=== PATIENT | female | born 1955 | race Hispanic/Latino ===

== ENCOUNTER 2021-04-24 07:43 | Emergency (ER) | payer OTHER ==
--- OUTSIDE RECORDS SUMMARY | 2021-04-24 07:46 | XMS REPORT | Continuity of Care Document ---
:1955 Author Organization [facility] t Address [address] [place] [address] [address]. [address] [place] [address] Care Team Providers Name Role Phone Marino Goodwin MD Primary Care Physician JAILYN Attending Clinician Unavailable Yahir Vargas MD Attending Clinician Chadd PATE Attending Clinician Unavailable JAILYN Attending Clinician Unavailable DENNY Attending Clinician Unavailable Payers Payer Name Policy Type Policy Number Effective Date Expiration Date S zamzam [facility] MEDICARE [id number] 2020 ADVANTAGE 00:00:00 Problems Condition Condition Condition Status Onset Resolution Last Treating Co mments Source Name Details Category Date Date Treatment Clinician Date 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 hyperthyro 00:00: Ho spita idism idism 00 l Multinodul Multinodul Disease Active 2018-0 M ethodi ar goiter ar goiter 03-10 00:00: Hospita 00 l Pre-operat Pre-operat Problem Active U nivers evie evie ity [place] cardiovasc [place]ovasc [place] ular [place] Physici examinatio examinatio an s n, n, valvular valvular heart heart disease disease Essential Essential Problem Active Uni vers hypertensi hypertensi it y of on on [place] Physici ans Mixed Mixed Problem Active Univers hyperlipid hyperlipid it y of emia emia [place] Phys[facility] ans Controlled Controlled Problem Active U nivers 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 diabetes [place] mellitus mellitus Physic i without without ans complicati complicati on, on, without without long-term long-term current current use of use of insulin insulin SUSAN on SUSAN on Problem Active Univers CPAP CPAP ity of [place] Physici ans Morbidly Morbidly Problem Active Unive rs obese obese ity of [place] [facility] ans Malnutriti Malnutriti Problem Active U nivers on on ity of [place] Physici ans S/P S/P Problem Active Univers gastric gastric ity of bypass bypass [place] [facility] Fat Fat Problem Active Univers malabsorpt malabsorpt it y of ion ion [place] [facility] Vitamin D Vitamin D Problem Active Uni vers deficiency deficiency it y of [place] Physici ans Recurrent Recurrent Problem Active Uni vers ventral ventral ity of hernia hernia [place] [facility] Vitamin B1 Vitamin B1 Problem Active U nivers deficiency deficiency it y of [place] [facility] Vitamin B Vitamin B Problem Active Uni vers 12 12 [place]y of deficiency deficiency [place] [facility] Allergies, Adverse Reactions, Alerts Allergy Allergy Status Severity Reaction(s) Onset Inactive Treating Comm ents Source Name Type Date Date Clinician Hydrocod Propensi Active Method i one ty to 03-10 st adverse 00:00: Hospita reaction 00 l s to drug hydrocod Allergy Active Univers one to drug ity of (finding [place] ) Physici ans Family History Family Member Diagnosis Comments Start Date Stop Date Source Natural father Dementia [facility] Natural father Hypertension [facility] t [facility] Natural mother Cancer [facility] Natural mother Thyroid disease Metho dist [facility] Natural sister Cancer [facility] Social History Social Habit Start Date Stop Date Quantity Comments Source Exposure to Not sure [facility] [address] (event) Tobacco use and 2020-12-31 2020-12-31 Never used [facility] exposure 00:00:00 00:00:00 Hospital Alcohol intake 2020-12-31 2020-12-31 Ex-drinker [facility] 00:00:00 00:00:00 (finding) Hospital Sex Ass[birth year] At [birth year] [facility] 00:00:00 00:00:00 Hospital Smoking Status Start Date Stop Date Source Never smoker [facility] Medications Ordered Filled Start Stop Current Ordering Indication Dosage Frequency Signature Comments Components Source Medication Medication Date Date Medication? Clinician (SIG) Name Name pravastatin 10mg QD Take 10 mg Maricarmen (PRAVACHOL) 12-[address] 10 MG 16:27: 00:00 nightly. Hospita tablet 44 :00 l duloxetine Yes Take by Meth kalpana HCl 12-[address] (DULOXETINE 16:27: mg Hospit a ORAL) 43 l Ca/D3/mag Yes Take by Metho di ox/zinc/animal cop 12-[address] /deniz/bor 16:27: IU - D3 Hospi ta (CALCIUM 43 l 600-D3 PLUS ORAL) hydroCHLORO Yes 25mg QD Take 25 mg Methodi thiazide 12-[address] (HYDRODIURI 16:27: daily. Hosp nelson L) 25 MG 43 l tablet multivitami Yes 1{tbl} QD Take 1 Me thodi n tablet 12-[address] 16:27: mouth Hospita 43 daily. l CALCIUM Yes Take by Methodi CITRATE 12-[address] ORAL 16:27: mg bid Hospita 43 l metformin 2020- No Take by Meth kalpana HCl 12-[address] (METFORMIN 16:27: 00:00 mg BID Hosp nelson ORAL) 43 :00 l losartan-hy 2020- No 1{tbl} QD Take 1 M ethodi drochloroth 12-31 tablet by iazide 16:27: 00:00 mouth Hospita (HYZAAR) 43 :00 daily. l 100-12.5 mg per tablet dapaglifloz 2020- No 10mg QD Take 10 mg Methodi in 12-[address] (FARXIGA) 16:27: 00:00 daily. Hospi ta 10 mg 43 :00 l tablet multivitami 2020- No Take by Ms thodi n/iron/foli 12-[address] c acid 16:27: 00:00 Hospita (CENTRUM 43 :00 l COMPLETE ORAL) beta-carote 2020- No Take by Ms princess ne,A,-vits 12-[address] C,E/mins 16:27: 00:00 Hospita (VISION 43 :00 l FORMULA ORAL) aspirin 2020- No 81mg QD Take 81 mg Met hodi (ECOTRIN) 12-[address] 81 MG 16:27: 00:00 daily. Hospita enteric 43 :00 l coated tablet Losartan Losartan Yes RESERVATIONS SPECIALIST 1 QD TAKE 1 Unive rs Potassium-H Potassium-H TABLET ity of CTZ CTZ DAILY. [place] 100-12.5 MG 100-12.5 MG P hysici Oral Tablet Oral Tablet a ns DULoxetine DULoxetine Yes RESERVATIONS SPECIALIST 1 QD TAKE 1 U nivers HCl - 40 MG HCl - 40 MG CAPSULE ity of Oral Oral DAILY [place] Capsule Capsule Physici Delayed Delayed ans Release Release Particles Particles Bariatric Bariatric Yes RESERVATIONS SPECIALIST Unive rs Multivitami Multivitami i ty of ns/Iron ns/Iron [place] Oral Oral Physici Capsule Capsule ans Vitamin Vitamin Yes RESERVATIONS SPECIALIST Univers B-12 500 B-12 500 ity of MCG MCG [place] Sublingual Sublingual Phy sici Tablet Tablet ans Sublingual Sublingual Calcium 500 Calcium 500 Yes RESERVATIONS SPECIALIST U nivers MG TABS MG TABS ity of [place] Physici ans Hair Skin Hair Skin Yes RESERVATIONS SPECIALIST 1 QD TAKE 1 Uni vers and Nails and Nails TABLET ity of Formula Formula DAILY. [place] Oral Tablet Oral Tablet P hysici ans Vital Signs Vital Name Observation Time Observation Value Comments Source Systolic blood 2020-12-31 145 mm[Hg] [facility] pressure 16:22:00 [facility] Diastolic blood 2020-12-31 63 mm[Hg] [facility] pressure 16:22:00 [facility] Heart rate 2020-12-31 60 /min [facility] 16:22:00 [facility] Body height 2020-12-31 157.5 cm [facility] 16:22:00 [facility] Body weight 2020-12-31 77.656 kg [facility] 16:22:00 [facility] BMI 2020-12-31 31.31 kg/m2 [facility] 16:22:00 [facility] Body temperature 2020-12-06 95.3 [degF] Method: [facility] 11:32:00 Temporal [place] Physician s Heart Rate 2020-12-06 62 /min Location: [facility] 11:32:00 Brachial [place] Physician s Artery; Systolic blood 2020-12-06 141 mm[Hg] Location: [facility] 11:32:00 Position: [place] Physician s Sitting Diastolic blood 2020-12-06 75 mm[Hg] Location: [facility] 11:32:00 Position: [place] Physician s Sitting Body height 2020-12-06 60 [in_us] University of 11:32:00 [place] Physician s Weight 2020-12-06 175.5 [lb_av] University of 11:32:00 [place] [facility]ician s Body mass index 2020-12-06 34.28 kg/m2 University o f (BMI) [Ratio] 11:32:00 [place] Physicia ns Systolic blood 2020-08-28 144 mm[Hg] Location: ART[facility]; [facility] 10:58:00 Position: [place] Physician s Sitting Diastolic blood 2020-08-28 80 mm[Hg] [facility] 10:58:[facility] Position: [place] Physician s Sitting Body height 2020-08-28 60 [in_us] University of 10:58:00 [place] Physician s Weight 2020-08-28 187.5 [lb_av] University of 10:58:00 [place] [facility] s Body mass index 2020-08-28 36.62 kg/m2 University o f (BMI) [Ratio] 10:58:00 [place] Physicia ns Body temperature 2020-08-28 95.4 [degF] Method: [place] of 10:58:00 Temporal [place] Physician s Heart Rate 2020-08-28 80 /min Location: L [place] of 10:58:00 Brachial [place] Physician s Artery; Quality: Normal Systolic blood 2020-05-29 111 mm[Hg] [facility] 13:32:[facility] Position: [place] Physician s Sitting Diastolic blood 2020-05-29 70 mm[Hg] [facility] 13:32:[facility] Position: [place] Physician s Sitting Body height 2020-05-29 65 [in_us] University of 13:32:00 [place] Physician s Weight 2020-05-29 208 [lb_av] University of 13:32:00 [place] Physician s Body mass index 2020-05-29 34.61 kg/m2 University o f (BMI) [Ratio] 13:32:00 [place] Physicia ns Body temperature 2020-05-29 96.2 [degF] Method: University of 13:32:00 Brachial [place] Physician s Heart Rate 2020-05-29 76 /min Location: L [place] of 13:32:00 Brachial [place] Physician s Artery; Quality: Normal Systolic blood 2020-01-24 162 mm[Hg] [facility] 12:35:00 Position: [place] Physician s Sitting Diastolic blood 2020-01-24 87 mm[Hg] [facility] 12:35:00 Position: [place] Physician s Sitting Body height 2020-01-24 60 [in_us] University 12:35:00 [place] Physician s Weight 2020-01-24 265.375 [lb_av] University o f 12:35:00 [place] Physician s Body mass index 2020-01-24 51.83 kg/m2 University o (BMI) [Ratio] 12:35:00 [place] [facility] Body temperature 2020-01-24 98.3 [degF] Method: Oral [facility] 12:35:00 [place] Physician s Heart Rate 2020-01-24 84 /min Location: Jossy [facility] 12:35:00 Brachial [place] Physician s Artery; Quality: Normal BP Systolic 2019-05-17 186 mm[Hg] [facility] 11:00:00 Position: [place] Physician s Sitting BP Diastolic 2019-05-17 81 mm[Hg] [facility] 11:00:00 Position: [place] Physician s Sitting Height 2019-05-17 60 [in_us] [facility] 11:00:00 [place] Physician s Weight 2019-05-17 287 [lb_av] [facility] 11:00:00 [place] [facility] s Body Mass Index 2019-05-17 56.05 kg/m2 University o f Calculated 11:00:00 [place] Physician s Temperature 2019-05-17 98 [degF] Method: Oral [facility] 11:00:00 [place] [facility] s Heart Rate 2019-05-17 85 /min [facility] 11:00:00 [place] [facility] Procedures Procedure Date / Time Performing Clinician Source Performed NM THYROID UPTAKE AND 2021-04-08 16:35:00 Ishmael Vargas [facility] SCAN SINGLE OR MULTIPLE [Q] QUESTASSURED 25-[place] 2020-12-06 00:00:00 [facility] VIT D, (D2,D3), Physicians LC/MS/MS [QL] CBC (INCLUDES 2020-12-06 00:00:00 [facility] [place] [facility] DIFF/PLT) Physicians [QL] CMP W/EGFR 2020-12-06 00:00:00 [facility] [place] Physicians [QL] FOLATE, SERUM 2020-12-06 00:00:00 [facility] Physicians [QL] HEMOGLOBIN A1c 2020-12-06 00:00:00 [facility] Physicians [QL] IRON AND TOTAL 2020-12-06 00:00:00 [facility] IRON BINDING CAPACITY Physicians [QL] LIPID PANEL 2020-12-06 00:00:00 [facility] Physicians [QL] PTH, INTACT 2020-12-06 00:00:00 [facility] (WITHOUT CALCIUM) Physicians [QL] TSH, 3RD 2020-12-06 00:00:00 [facility] GENERATION W/REFLEX TO Physician s FT4 [QL] VITAMIN A 2020-12-06 00:00:00 [facility] (RETINOL) Physicians [QL] VITAMIN B1, WHOLE 2020-12-06 00:00:00 Unive [facility] BLOOD Physicians [QL] VITAMIN B12 2020-12-06 00:00:00 [facility] Physicians [QL] VITAMIN E 2020-12-06 00:00:00 [facility] (TOCOPHEROL) Physicians [Q] QUESTASSURED 25-[place] 2020-08-28 00:00:00 Unive [facility] VIT D, (D2,D3), Physicians LC/MS/MS [QL] CBC (INCLUDES 2020-08-28 00:00:00 [facility] DIFF/PLT) Physicians [QL] FOLATE, SERUM 2020-08-28 00:00:00 [facility] Physicians [QL] IRON AND TOTAL 2020-08-28 00:00:00 [facility] IRON BINDING CAPACITY Physicians [QL] LIPID PANEL 2020-08-28 00:00:00 [facility] Physicians [QL] PTH, INTACT 2020-08-28 00:00:00 [facility] (WITHOUT CALCIUM) Physicians [QL] VITAMIN A 2020-08-28 00:00:00 [facility] (RETINOL) Physicians [QL] VITAMIN B1, WHOLE 2020-08-28 00:00:00 Unive [facility] BLOOD Physicians [QL] VITAMIN B12 2020-08-28 00:00:00 [facility] Physicians [QL] VITAMIN E 2020-08-28 00:00:00 [facility] (TOCOPHEROL) Physicians CT Abdomen/Pelvis w 2020-08-28 00:00:00 [facility] contrast [id number] Physicians [Q] QUESTASSURED 25-[place] 2020-05-29 00:00:00 [facility] VIT D, (D2,D3), Physicians LC/MS/MS [QL] FOLATE, SERUM 2020-05-29 00:00:00 [facility] Physicians [QL] IRON AND TOTAL 2020-05-29 00:00:00 [facility] IRON BINDING CAPACITY Physicians [QL] PTH, INTACT 2020-05-29 00:00:00 [facility] (WITHOUT CALCIUM) Physicians [QL] VITAMIN A 2020-05-29 00:00:00 [facility] (RETINOL) Physicians [QL] VITAMIN B1, WHOLE 2020-05-29 00:00:00 [facility] BLOOD Physicians [QL] VITAMIN B12 2020-05-29 00:00:00 [facility] Physicians [QL] VITAMIN E 2020-05-29 00:00:00 [facility] (TOCOPHEROL) Physicians Plan of Care Planned Activity Planned Date Details Comments Source Future Scheduled Test 65+ PNEUMOCOCCAL Me [facility] VACCINE (1 of 2 - PPSV23) [code = 65+ PNEUMOCOCCAL VACCINE (1 of 2 - PPSV23)] Future Scheduled Test DIABETES: RETINAL EYE [facility] EXAM [code = DIABETES: RETINAL EYE EXAM] Future Scheduled Test DIABETIC FOOT EXAM [facility] [code = DIABETIC FOOT EXAM] Future Scheduled Test URINE MICROALBUMIN [facility] [code = URINE MICROALBUMIN] Future Scheduled Test COVID-19 VACCINE (1) [facility] [code = COVID-19 VACCINE (1)] Future Scheduled Test Hepatitis C screening [facility] (procedure) [code = 701263424] Future Scheduled Test BREAST CANCER SCREENING [facility] [code = BREAST CANCER SCREENING] Future Scheduled Test COLONOSCOPY SCREENING [facility] [code = COLONOSCOPY SCREENING] Future Scheduled Test SHINGLES VACCINES (#1) [facility] [code = SHINGLES VACCINES (#1)] Future Scheduled Test INFLUENZA VACCINE [code [facility] = INFLUENZA VACCINE] Future Scheduled Test Screening for malignant [facility] neoplasm of cervix (procedure) [code = 954684989] Encounters Start End Encounter Admission Attending Care Care Encounter Source Date/Time Date/Time Type Type Clinicians Facility Department ID 2020-12-28 Outpatient JAILYN [facility] [id number] [place] 03:12:38 [facility] 2020-02-06 Inpatient [facility] MADHURI [address] [facility] 05:19:00 2021-04-08 2021-04-08 [facility], 1.2.840.1 [id number] Methodi 10:30:00 23:59:00 Encounter Ishmael VandaAlannah 54830.1.[address] 3.430.2.7 Hospit a .3.904520 l .8 2021-04-08 2021-04-08 Outpatient [facility] [id number] [place] 00:00:00 00:00:[address] 2021-04-07 2021-04-07 [facility], 1.2.840.1 [id number] Methodi 14:05:21 23:59:00 Encounter Ishmael VandaAlannah 56656.1.[address] 3.430.2.7 Hospit a .3.814574 l .8 2021-04-07 2021-04-07 [facility], 1.2.840.1 [id number] 127 Methodi 10:16:24 14:04:00 Encounter Ishmael VandaAlannah 26629.1.[address] 3.430.2.7 Hospit a .3.192416 l .8 2021-04-07 2021-04-07 Outpatient [facility] [id number] [place] 00:00:00 00:00:00 ISHMAEL [address] 2021-04-07 2021-04-07 Outpatient [facility] [id number] [place] 00:00:00 00:00:[address] 2021-04-07 2021-04-07 Travel 1.2.840.1 1.2.269.265 [id number] Methodi 00:00:00 00:00:[address] 3.430.2.7 0.2.7.3.698 Ho spita .3.234525 084.8 l .8 2021-03-27 2021-03-27 Travel 1.2.840.1 1.2.578.399 [id number] Methodi 00:00:00 00:00:[address] 3.430.2.7 0.2.7.3.698 Ho spita .3.079703 084.8 l .8 2021-03-07 2021-03-07 Office ROSEY Glaser [facility] 1.2.840.114 [id number] 11:54:00 12:19:17 Visit Louise IVERSON 350.1.13.58 MEDICAL 9.2.7.2.686 [address] 4 [id number] 2021-03-05 2021-03-05 Travel 1.2.840.1 1.2.878.347 [id number] Methodi 00:00:00 00:00:[address] 3.430.2.7 0.2.7.3.698 Ho spita .3.433023 084.8 l .8 2021-03-05 2021-03-05 Noreen Florentino 1.2.840.1 [id number] Methodi 00:00:00 00:00:[address] 3.430.2.7 Hospit a .3.957292 l .8 2021-03-05 2021-03-05 Orders Chadd 1.2.840.1 [id number] Methodi 00:00:00 00:00:00 Only Charo [address]76.1.[address] 3.430.2.7 Hospit a .3.031378 l .8 2020-12-31 2020-12-31 Office Alicia, 1.2.840.1 [id number] Methodi 11:16:39 11:36:39 Visit Ishmael Sinclair 69646.1.[address] 3.430.2.7 Hospit a .3.653164 l .8 2020-12-31 2020-12-31 Outpatient [facility] [id number] 00:00:00 00:00:00 ISHMAEL [address] 2020-12-31 2020-12-31 Travel 1.2.840.1 1.2.315.248 [id number] Methodi 00:00:00 00:00:[address] 3.430.2.7 0.2.7.3.698 Ho spita .3.517942 084.8 l .8 2020-12-17 2020-12-17 Telephone Chadd, 1.2.840.1 [id number] Methodi 00:00:00 00:00:[address] 3.430.2.7 Hospit a .3.541787 l .8 2020-12-06 2020-12-06 [id number] Univers 11:45:00 11:45:00 t; LOUISE GLASER M.D. lty - ity of [place] GIL [facility] Physici ans 2020-08-28 2020-08-28 [facility] [id number] Univers 11:00:00 11:00:00 t; LOUISE GLASER M.D. Surgery - ity of [place] Physici ans 2020-05-29 2020-05-29 [facility] [id number] Univers 13:45:00 13:45:00 t; LOUISE GLASER M.D. ity of [place] Physici ans 2020-03-27 2020-03-27 [facility] [id number] Univers 13:30:00 13:30:00 t; LOUISE GLASER M.D. ity of [place] Physici ans 2020-02-16 2020-02-16 [facility] ROSEY GLASER [facility] [id number] Univers 13:00:00 13:00:00 t; LOUISE GLASER M.D. ity of [place] Physici ans 2020-02-16 2020-02-16 [facility] [id number] Univers 10:15:00 10:15:00 t; LOUISE GLASER M.D. ity of [place] Physici ans 2020-01-24 2020-01-24 Appointmen ROSEY GLASER General [id number] Univers 13:00:00 13:00:00 t; LOUISE GLASER M.D. Surgery - ity of [place] Phys[place] 2019-08-21 2019-08-21 Appointmen JEREMYBRITNI-FAUSTOEDMAR [facility] UTP [id number] Univers 10:00:00 10:00:00 t; RAFFAELE Suarez, ity of [address] [facility] Physi ci RD ans 2019-08-10 2019-08-10 Appointmen JEREMYBRITNI-FAUSTOEDMAR [facility] UTP [id number] Univers 12:30:00 12:30:00 t; RAFFAELE Suarez ity of [address] [facility] Physi ci RD ans 2019-08-04 2019-08-04 Appointmen ROSEY GLASER UTP [id number] Univers 11:15:00 11:15:00 t; LOUISE GLASER M.D. ity of [place] Physici ans 2019-07-17 2019-07-17 Appointmen MERCEDEZ-DAGMARIsac [facility] UTP [id number] Univers 12:30:00 12:30:00 t; RAFFAELE Suarez ity of [address] [facility] Physi ci RD ans 2019-07-10 2019-07-10 Appointmen ROSEY GLASER General [id number] Univers 11:30:00 11:30:00 t; LOUISE GLASER M.D. Surgery - ity of [place] [facility] Physici Center ans 2019-06-19 2019-06-19 Appointmen JEREMYBRITNI-FAUSTOEDMAR [facility]TP [id number] Univers 09:45:00 09:45:00 t; RAFFAELE Suarez ity of [address] [facility] Physi ci RD ans 2019-05-17 2019-05-17 Appointmen ROSEY GLASER Multispecia [id number] Univers 11:00:00 11:00:00 t; LOUISE GLASER M.D. lty - ity of [place] Physici ans Results Test Description Test Time Test Comments Results Result 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 Comparison: None TECHNIQUE: The patient was administered 200 uCi of I-123 sodium iodide orally. The patient returned 24 hours later for planar thyroid scintigraphy and radioiodine uptake value calculation. A 4 hr uptake was also calculated. FINDINGS: Markedly increased uptake in both thyroid lobes, but this is quite heterogeneous and includes a roughly 3.3 cm photopenic defect in the lateral left mid pole. Both lobes are markedly enlarged, with the right lobe measuring about 8.5 cm in the left lobe 9.2 cm. 4 hour uptake = 21% (normal = 5-10%)24-hour uptake = 65% (normal = 10-25%) IMPRESSION: Findings are very suggestive of Graves' disease. However, markedly heterogeneous radiotracer uptake throughout the thyroid gland suggests multiple hypofunctioning (cold) nodules, with a large cold nodule in the left mid pole. Please correlate with ultrasound to exclude malignancy. [facility]-[id number] Dictated and approved by vice president of business development/fellow: Severo Gonzales M.D. 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 The patient returned 24 hours later for planar thyroid scintigraphy and radioiodine uptake value calculation. A 4 hr uptake was also calculated. FINDINGS: Markedly increased uptake in both thyroid lobes, but this is quite heterogeneous and includes a roughly 3.3 cm photopenic defect in the lateral left mid pole. Both lobes are markedly enlarged, with the right lobe measuring about 8.5 cm in the left lobe 9.2 cm.4 hour uptake = 21% (normal = 5-10%)24-hour uptake = 65% (normal = 10-25%) IMPRESSION:Findings are very suggestive of Graves' disease. However, markedly heterogeneous radiotracer uptake throughout the thyroid gland suggests multiple hypofunctioning (cold) nodules, with a large cold nodule in the left mid pole. Please correlate with ultrasound to exclude malignancy.[facility]-[id number] and approved by vice president of business development/fellow: Tyron Kim, Yosi Green, personally reviewed the images and resident's/fellow's findings and agree with the final report. [QL] LIPID PANEL 2020-12-06 12:18:00 Test Item Value Reference Range Interpretation Comme nts CHOLESTEROL, TOTAL; Normal 166 mg/dl <200 N (test code = 2093-3) HDL CHOLESTEROL; Below Low 49 mg/dl See_Comment [Automated message] The Threshold (test code = syste m which generated 2085-04) this result tra nsmitted reference range : > OR = 50. The referen ce range was not used to interpret this result as normal/abnormal . TRIGLYCERIDES; Normal (test 78 mg/dl <150 N code = 2571-8) LDL-CHOLESTEROL; Above High 100 {MG/DL MAGDIEL} Reference range: <100 Threshold (test code = Dwight able range <100 mg/dL 49466-4) for primary pre vention; <70 mg/dL for p atients with CHD or imtiaz betic patients with > or = 2 CHD risk factors. L DL-C is now calculated julisa mulligan the Ankush-Crane calculation, wh ich is a validated novel method providing cholo r accuracy than the Friede mamie equation in the estimation of LDL-C. Raina n SS et al. EFFIE. 2013;310( 19): 0753-4582 (http://educati onHudl/fa q/HQE557) CHOL/HDLC RATIO (test code = 3.4 {CALC} <5.0 N CHOL/HDLC RATIO) NON HDL CHOLESTEROL (test 117 {MG/DL MAGDIEL} <130 N For patients with diabetes code = NON HDL CHOLESTEROL) plus 1 major ASCVD risk factor, treatin g to a non-HDL-C goal of <100 mg/dL (LDL-C of <70 mg/dL) is considered a therapeutic opt ion. [facility][QL] IRON AND TOTAL IRON BINDING CAPACITY 2020-12-06 12:18:00 Test Item Value Reference Range Interpretation Comments IRON, TOTAL (test code = 118 {mcg/dl} 45-160 N IRON, TOTAL) IRON BINDING CAPACITY (test 323 {mcg/dL ca} 250-450 N code = IRON BINDING CAPACITY) % SATURATION (test code = % 37 {% CALC} 16-45 N SATURATION) [facility][QL] CMP [id number] 12:18:00 Test Item Value Reference Range Interpretation Comments GLUCOSE; Normal 88 mg/dl 65-139 N Non-fasting reference (test code = interval 1547-9) UREA NITROGEN (BUN) 28 mg/dl 7-25 (test code = UREA NITROGEN (BUN)) CREATININE (test 0.65 mg/dl 0.50-0.99 N For patient s >49 years code = CREATININE) of age, t he reference limitfor Creati nine is approximately 1 3% higher for peopleidentifie d as -Lidya n. eGFR NON-AFR. 93 See_Comment N [Automated me ssage] JORDANIAN (test code {ML/MIN/1.7} The syst em which = eGFR NON-AFR. generated th is result JORDANIAN) transmitted ref erence range: > OR = 6 0. The reference range was not used to interpr et this result as normal/abnormal . eGFR 108 See_Comment N [Automated mes saul] JORDANIAN (test code {ML/MIN/1.7} The syst em which = eGFR generated thi s result JORDANIAN) transmitted ref erence range: > OR = 6 0. The reference range was not used to interpr et this result as normal/abnormal . BUN/CREATININE 43 {CALC} 6-22 RATIO (test code = BUN/CREATININE RATIO) SODIUM (test code = 143 mmol/L 135-146 N SODIUM) POTASSIUM (test 4.9 mmol/L 3.5-5.3 N code = POTASSIUM) CHLORIDE (test code 106 mmol/L 98-110 N = CHLORIDE) CARBON DIOXIDE 31 mmol/L 20-32 N (test code = CARBON DIOXIDE) CALCIUM (test code 9.9 mg/dl 8.6-10.4 N = CALCIUM) PROTEIN, TOTAL 6.5 g/dl 6.1-8.1 N (test code = PROTEIN, TOTAL) ALBUMIN (test code 4.0 g/dl 3.6-5.1 N = ALBUMIN) GLOBULIN (test code 2.5 {G/DL 1.9-3.7 N = GLOBULIN) CALC} ALBUMIN/GLOBULIN 1.6 {CALC} 1.0-2.5 N RATIO (test code = ALBUMIN/GLOBULIN RATIO) BILIRUBIN, TOTAL; 0.7 mg/dl 0.2-1.2 N Normal (test code = 85172-2) ALKALINE 97 u/l 37-153 N PHOSPHATASE (test code = ALKALINE PHOSPHATASE) AST; Normal (test 24 u/l 10-35 N code = 1916-6) ALT; Normal (test 23 u/l 6-29 N code = 1742-6) [facility][QL] CBC (INCLUDES DIFF/PLT)2020-12-06 12:18:00 Test Item Value Reference Range Interpretation Comments WHITE BLOOD CELL COUNT 5.4 {Thousand/u} 3.8-10.8 N (test code = WHITE BLOOD CELL COUNT) RED BLOOD CELL COUNT (test 4.31 {Million/uL} 3.80-5.10 N code = RED BLOOD CELL COUNT) HEMOGLOBIN; Normal (test 13.5 g/dl 11.7-15.5 N code = 65185-7) HEMATOCRIT; Normal (test 39.0 % 35.0-45.0 N code = 4544-3) MCV; Normal (test code = 90.5 fL 80.0-100.0 N 787-2) MCHC; Normal (test code = 34.6 g/dl 32.0-36.0 N 90612-3) RDW; Normal (test code = 12.1 % 11.0-15.0 N 788-0) PLATELET COUNT; Normal 218 {Thousand/u} 140-400 N (test code = 777-3) MPV; Normal (test code = 10.2 fL 7.5-12.5 N 90933-6) ABSOLUTE NEUTROPHILS (test 2873 {cells/uL} 0832-9177 N code = ABSOLUTE NEUTROPHILS) ABSOLUTE LYMPHOCYTES (test 2187 {cells/uL} 850-3900 N code = ABSOLUTE LYMPHOCYTES) ABSOLUTE MONOCYTES (test 259 {cells/uL} 200-950 N code = ABSOLUTE MONOCYTES) ABSOLUTE EOSINOPHILS (test 59 {cells/uL} 15-500 N code = ABSOLUTE EOSINOPHILS) ABSOLUTE BASOPHILS (test 22 {cells/uL} 0-200 N code = ABSOLUTE BASOPHILS) NEUTROPHILS (test code = 53.2 % N NEUTROPHILS) LYMPHOCYTES (test code = 40.5 % N LYMPHOCYTES) MONOCYTES; Normal (test 4.8 % N code = 50462-2) EOSINOPHILS; Normal (test 1.1 % N code = 98320-1) BASOPHILS; Normal (test 0.4 % N code = 63864-7) [facility][QL] PTH, INTACT (WITHOUT CALCIUM)2020-12-06 12:18:00 Test Item Value Reference Range Interpretation Comments PARATHYROID 22 pg/ml 14-64 N Interpretive Gu narinder Intact HORMONE, INTACT PTH (test code = Calcium-------- PARATHYROID HORMONE, INTACT) -------Norm al Parathyroid Normal NormalHypoparat hyroidism Low or Low Norm al LowHyperparathy roidism Primary Normal or High High Secondary High Normal or Low Tertiary High HighNon-Parathy roid Hypercalcemia Low or Low Normal High [facility][QL] VITAMIN E (TOCOPHEROL)2020-12-06 12:18:00 Test Item Value Reference Range Interpretation Comments ALPHA-TOCOPHEROL 12.8 mg/L Reference R clint (test code = 5.7-19.9 mg/L ALPHA-TOCOPHEROL) Levels of alpha-tocopherol <5 mg/L are consistent with Vitamin E deficiency in adults.Vitamin supplementation within 24 hours prior to blood draw may affect the accuracy of results. T his test was developed and i ts analytical perf ormance characteristics have been determined by [facility]. It has not been cleared or approved by theFDA. This as say has been validated pursu ant to the CLIA regulation s and is used for clinic al purposes. [id number] <1.0 <4.4 This test was developed and DYLLAN (test code = its analyt ical performance [id number] characteri stics have been DYLLAN) determined by [facility]. It has not been cleared or approved by theFDA. This as say has been validated pursu ant to the CLIA regulation s and is used for clinic al purposes. Reference Range 5.7-19.9 mg/L Levels of alpha-tocopherol <5 mg/L are consistent with Vitamin E deficiency in adults.Vitamin supplementation within 24 hours prior to blood draw may affect the accuracy of results. This test was developed and its analytical performance characteristics have been determined by [employer]. It has not been cleared or approved by theFDA. This assay has been validated pursuant to the CLIA regulations and is used for clinical purposes.[facility][QL] FOLATE, [id number] 12:18:00 Test Item Value Reference Range Interpretation Comments FOLATE, SERUM (test >24.0 N Referenc e Range code = FOLATE, SERUM) Low: <3.4 Borderli ne: 3.4-5.4 Normal: >5.4 [facility][QL] VITAMIN [id number] 12:18:00 Test Item Value Reference Range Interpretation Comments VITAMIN B12 (test code = VITAMIN B12) >2000 200-1100 [facility][QL] TSH, 3RD GENERATION W/REFLEX TO [id number] 12:18:00 Test Item Value Reference Range Interpretation Comments TSH, 3RD GENERATION W/REFLEX TO 0.15 {MIU/L} 0.40-4.50 FT4 (test code = TSH, 3RD GENERATION W/REFLEX TO FT4) [facility][QL] VITAMIN B1, WHOLE [id number] 12:18:00 Test Item Value Reference Range Interpretation Comments VITAMIN B1, WHOLE 212 nmol/L 78-185 Vitamin lawson pplementation BLOOD (test code = within 24 hours prior VITAMIN B1, WHOLE toblood dr andi may affect BLOOD) the accuracy of results. This test was developed and its analyti magdiel performance characteristics have been determined by [facility]. It has not been cleared or approved by theFDA. This assay has been validated pursuant to the CLIA reg ulations and is used for clinical purposes. [facility][QL] HEMOGLOBIN [id number] 12:18:00 Test Item Value Reference Range Interpretation Comments HEMOGLOBIN A1c; 4.5 {% of <5.7 N For the purp ose of Normal (test code total} screening for the = 4548-4) presence ofdiab etes: <5.7% Con sistent with the absenc e of diabetes5.7-6.4 % Consistent with increased risk for diabetes (prediabetes)> or =6.5% Consistent wit h diabetes This a ssay result is consi stent with a decrease d riskof diabetes. Curre ntly, no consensus exist s regarding use ofhemoglobin A1 c for diagnosis of di abetes in children. Ac cording to [place] [employer] (ADA)guidelines , hemoglobin A1c <7.0% represents optimalcontrol in non- di abetic patients. Differentmetric s may apply to specif ic patient populat ions. Standards of Me dical Care in Diabete s(ADA). [facility][QL] VITAMIN A (RETINOL)2020-12-06 12:18:00 Test Item Value Reference Range Interpretation Comments VITAMIN A (test 44 {mcg/dl} 38-98 Clin Chem Vol. 34.No.8. code = VITAMIN A) [id number] 8. 1998Vitamin supplementation within 24 hours prior to blood draw may affect the accuracy of results. T his test was developed a nd its analytical perf ormance characteristics have been determined by [facility]. It has not been cleared or approved by theFDA. This assay has been validated pursuant to the CLIA reg ulations and is used for clinical purposes. REPORT COMMENT:FASTING:[facility]] QUESTASSURED 25-OH VIT D, (D2,D3), LC/MS/[id number] 12:18:00 Test Item Value Reference Range Interpretation Comments VITAMIN D, <4.0 ng/ml 30-100 (Note)Reference range: Not 25-OH, D2 established Thi s test was (test code = developed and i ts analytical VITAMIN D, performancechar acteristics have 25-OH, D2) been determined by [facility]. It has not been cleared or approved by the US Food and Drug Administra tion. Thisassay has been valida juan diego pursuant to the CLIA regula tion and is usedfor Clinica l purposes.[facility] ihnyar[address] [facility] [address] [place] [address] [id number] ElleMichael Chaump, MDSee N ote 1 Note 1 For additional info rmation, please refer to http://educatio n.[employer].com/faq/FAQ1 99 (This link is being provided for informational/e ducational purposes only.) VITAMIN D, 43 ng/ml Reference range : Not 25-OH, D3 established (test code = VITAMIN D, 25-OH, D3) Reference range: Not establishedREPORT COMMENT:FASTING:[facility][QL] T4, [id number] 12:18:00 Test Item Value Reference Range Interpretation Comments T4, FREE (test code = T4, FREE) 1.1 ng/dl 0.8-1.8 N [facility] [id number] 12:20:00Radiation Dose CTDIVOL = 0 (mGy): DLP = 952.35 (mGy-cm)PROCEDURE INFORMATION:Exam: CT Abdomen And Pelvis With ContrastExam date and time: 09/04/2020 12:27 PMAge: 64 years oldClinical indication: Incisional hernia without obstruction or gangrene;Additional info: /k43.2 incisional hernia without obstruction or gangreneTECHNIQUE:Imaging protocol: Computed tomography of the abdomen and pelvis withintravenous contrast.Radiation optimization: All CT scans at this facility use at least one of thesedose optimization techniques: automated exposure control; mA and/or kVadjustment per patient size (includes targeted exams where dose is matched toclinical indication); or iterative reconstruction.Contrast material: OMNI 300; Contrast volume: 100 ml; Contrast route:INTRAVENOUS (IV); Other contrast: Oral, OMNI 300, 50 ML/ 900 ML WATER;COMPARISON:No relevant prior studies available.RADIATION DOSE METRICS:Total DLP (mGy-cm): 952.35FINDINGS:Lungs: Clear lung bases.Liver: Liver grossly normal.Gallbladder and bile ducts: Cholecystectomy, normal common duct.Pancreas: Pancreas normal.Spleen: Spleen normal.Adrenal glands: Adrenals normal.Kidneys and ureters: No renal mass, calculus, hydronephrosis or perinephricstranding.Stomach and bowel: Gastric bypass. Ectatic sigmoid, mild stool burden.Appendix: Appendix not visualized.Intraperitoneal space: No ascites.Vasculature: Moderate atherosclerosis.Lymph nodes: No adenopathy.Urinary bladder: Urinary bladder empty.Reproductive: Atrophic uterus, no adnexal mass.Bones/joints: Severe spondylosis and multilevel degenerative disc disease,pedicle fusion L3-L4.Soft tissues: Laxity midline ventral abdominal wall with approximate 2.8 cmright paramedian defect allowing herniation of mesenteric fat into the ventralabdominal wall without complication. Best seen series 2, image 78 and sagittalseries 400, image 64.Other findings: Aortic valve calcifications.IMPRESSION:1. Laxity midline ventral abdominal wall with right side fat containing herniaas described.2. Cholecystectomy.3. Gastric bypass.4. Severe spondylosis, degenerative disc disease and pedicle fusion L3-L4.Carmelo Walker MD On 09/05/2020 21:12:53; [id number]--Zfio by: Carmelo Walker MDDictated Date/time: 09/05/20 21:13Electronically Signed by: Carmelo Walker MD 09/05/2120:13FINAL REPORTUnBlue [facility][] LIPID [id number] 11:35:00 Test Item Value Reference Range Interpretation Comments CHOLESTEROL, TOTAL; 182 mg/dl <200 N Normal (test code = 2093-3) HDL CHOLESTEROL; 44 mg/dl > OR = 50 Below Low Threshold (test code = 2085-9) TRIGLYCERIDES; 83 mg/dl <150 N Normal (test code = 2571-8) LDL-CHOLESTEROL; 120 {MG/DL Reference r clint: Above High Threshold MAGDIEL} <100 De sirable range (test code = <100 mg/dL for 97815-6) primary prevent ion; <70 mg/dL for patients with C HD or diabetic patien ts with > or = 2 C HD risk factors. L DL-C is now calculat ed using the Vel calculation, wh ich is a validated novel method providin g better accuracy than the Friedewald equation in the estimation of L DL-C. Ankush SS et al . EFFIE. 2013;310( 19): 4365-1017 (http://educati on.[employer]. com/f aq/WDX673) CHOL/HDLC RATIO 4.1 {CALC} <5.0 N (test code = CHOL/HDLC RATIO) NON HDL CHOLESTEROL 138 {MG/DL <130 For martina ents with (test code = NON HDL MAGDIEL} diabete s plus 1 CHOLESTEROL) major ASCVD ris k factor, treatin g to a non-HDL-C goa l of <100 mg/dL (LDL -C of <70 mg/dL) is considered a therapeutic opt ion. [facility][QL] IRON AND TOTAL IRON BINDING CAPACITY 2020-08-28 11:35:00 Test Item Value Reference Range Interpretation Comments IRON, TOTAL (test code = 92 {mcg/dl} 45-160 N IRON, TOTAL) IRON BINDING CAPACITY (test 303 {mcg/dL ca} 250-450 N code = IRON BINDING CAPACITY) % SATURATION (test code = % 30 {% CALC} 16-45 N SATURATION) [facility][QL] CBC (INCLUDES DIFF/PLT)2020-08-28 11:35:00 Test Item Value Reference Range Interpretation Comments WHITE BLOOD CELL COUNT 7.4 {Thousand/u} 3.8-10.8 N (test code = WHITE BLOOD CELL COUNT) RED BLOOD CELL COUNT (test 4.53 {Million/uL} 3.80-5.10 N code = RED BLOOD CELL COUNT) HEMOGLOBIN; Normal (test 13.8 g/dl 11.7-15.5 N code = 69415-8) HEMATOCRIT; Normal (test 41.3 % 35.0-45.0 N code = 4544-3) MCV; Normal (test code = 91.2 fL 80.0-100.0 N 787-2) MCHC; Normal (test code = 33.4 g/dl 32.0-36.0 N 31837-0) RDW; Normal (test code = 11.8 % 11.0-15.0 N 788-0) PLATELET COUNT; Normal 237 {Thousand/u} 140-400 N (test code = 777-3) MPV; Normal (test code = 10.3 fL 7.5-12.5 N 74316-9) ABSOLUTE NEUTROPHILS (test 4248 {cells/uL} 1956-8953 N code = ABSOLUTE NEUTROPHILS) ABSOLUTE LYMPHOCYTES (test 2664 {cells/uL} 850-3900 N code = ABSOLUTE LYMPHOCYTES) ABSOLUTE MONOCYTES (test 400 {cells/uL} 200-950 N code = ABSOLUTE MONOCYTES) ABSOLUTE EOSINOPHILS (test 67 {cells/uL} 15-500 N code = ABSOLUTE EOSINOPHILS) ABSOLUTE BASOPHILS (test 22 {cells/uL} 0-200 N code = ABSOLUTE BASOPHILS) NEUTROPHILS (test code = 57.4 % N NEUTROPHILS) LYMPHOCYTES (test code = 36.0 % N LYMPHOCYTES) MONOCYTES; Normal (test 5.4 % N code = 19086-2) EOSINOPHILS; Normal (test 0.9 % N code = 78113-4) BASOPHILS; Normal (test 0.3 % N code = 14762-7) [facility][QL] PTH, INTACT (WITHOUT CALCIUM)2020-08-28 11:35:00 Test Item Value Reference Range Interpretation Comments PARATHYROID 18 pg/ml 14-64 N Interpretive Gu narinder Intact HORMONE, INTACT PTH (test code = Calcium-------- PARATHYROID HORMONE, INTACT) -------Norm al Parathyroid Normal NormalHypoparat hyroidism Low or Low Norm al LowHyperparathy roidism Primary Normal or High High Secondary High Normal or Low Tertiary High HighNon-Parathy roid Hypercalcemia Low or Low Normal High [facility][QL] FOLATE, [id number] 11:35:00 Test Item Value Reference Range Interpretation Comments FOLATE, SERUM (test >24.0 N Referenc e Range code = FOLATE, SERUM) Low: <3.4 Borderli ne: 3.4-5.4 Normal: >5.4 [facility][QL] VITAMIN [id number] 11:35:00 Test Item Value Reference Range Interpretation Comments VITAMIN B12 (test code = VITAMIN B12) >2000 200-1100 [facility][QL] VITAMIN E (TOCOPHEROL)2020-08-28 11:35:00 Test Item Value Reference Range Interpretation Comments ALPHA-TOCOPHEROL 15.0 mg/L Reference R clint (test code = 5.7-19.9 mg/L ALPHA-TOCOPHEROL) Levels of alpha-tocopherol <5 mg/L are consistent with Vitamin E deficiency in adults.Vitamin supplementation within 24 hours prior to blood draw may affect the accuracy of results. T his test was developed and i ts analytical perf ormance characteristics have been determined by [facility]. It has not been cleared or approved by theFDA. This as say has been validated pursu ant to the CLIA regulation s and is used for clinic al purposes. [id number] <1.0 <4.4 This test was developed and DYLLAN (test code = its analyt ical performance [id number] characteri stics have been DYLLAN) determined by [facility]. It has not been cleared or approved by theFDA. This as say has been validated pursu ant to the CLIA regulation s and is used for clinic al purposes. [facility][QL] VITAMIN B1, WHOLE [id number] 11:35:00 Test Item Value Reference Range Interpretation Comments VITAMIN B1, WHOLE 250 nmol/L 78-185 Vitamin lawson pplementation BLOOD (test code = within 24 hours prior VITAMIN B1, WHOLE toblood dr andi may affect BLOOD) the accuracy of results. This test was developed and its analyti magdiel performance characteristics have been determined by [facility]. It has not been cleared or approved by theFDA. This assay has been validated pursuant to the CLIA reg ulations and is used for clinical purposes. [facility][QL] VITAMIN A (RETINOL)2020-08-28 11:35:00 Test Item Value Reference Range Interpretation Comments VITAMIN A (test 46 {mcg/dl} 38-98 Clin Chem Vol. 34.No.8. code = VITAMIN A) [id number] 8. 1997Vitamin supplementation within 24 hours prior to blood draw may affect the accuracy of results. T his test was developed a nd its analytical perf ormance characteristics have been determined by [facility]. It has not been cleared or approved by theFDA. This assay has been validated pursuant to the CLIA reg ulations and is used for clinical purposes. [facility][Q] QUESTASSURED 25-OH VIT D, (D2,D3), LC/MS/MS 2020-08-28 11:35:00 Test Item Value Reference Range Interpretation Comments VITAMIN D, 46 ng/ml 30-100 (Note) Vitamin D, 25-Hydroxy 25-OH, TOTAL reports concent rations of two (test code = common forms, 2 5-OHD2 and VITAMIN D, 25-OHD3. 25-OHD 3 indicates both 25-OH, TOTAL) endogenous pro duction and supplementation . 25-OHD2 is an indicator of ex ogenous sources such as diet o r supplementation . Therapy is based on measu rement of Total 25-OHD, with le vels <20 ng/mL indicative of V itamin D deficiency, whi le levels between 20 ng/m L and 30 ng/mL suggest insuffi ciency. Optimal levels are > or = 30 ng/mL. Vitamin D is fa t-soluble and therefore inadv ertent or intentional ing estion of excessively hig h amounts could be toxic. Studi es in children and adults sugg est blood levels would need to e xceed 150 ng/mL before there i s any concern. Donal DE LA FUENTE, Tyree SPARKS, Evelin KIM, et al. Evaluation, valdemar atment and prevention of v itamin D deficiency: an Endocrine Society clinica l practice guideline. J Cl in Endocrinol Metab. 2011;96( 7):1911-30. For additional info rmation, please refer to http://Wangdaizhijia/faq/FAQ19 9 VITAMIN D, 46 ng/ml Reference range : Not established 25-OH, D3 (test code = VITAMIN D, 25-OH, D3) VITAMIN D, <4.0 (Note)Reference range: Not 25-OH, D2 established Thi s test was (test code = developed and i ts analytical VITAMIN D, performancechar acteristics have 25-OH, D2) been determined by [facility]. It has not beencle ared or approved by the US Food and Drug Administration. Thisassay has been validated pursuant to the CLIA regulation and is usedfor Clinical purpos es.MDed [id number] [place] [address],[address] [facility] [id number] 00Michael Kaci Chahal Note 1 No te 1 For additional info rmation, please refer to http://Wangdaizhijia/faq/FAQ19 9 (This link is being provided for informational/e ducational purposes only.) [facility][QL] IRON AND TOTAL IRON BINDING CAPACITY 2020-05-29 00:00:00 Test Item Value Reference Range Interpretation Comments IRON, TOTAL (test code = 79 {mcg/dl} 45-160 N IRON, TOTAL) IRON BINDING CAPACITY (test 333 {mcg/dL ca} 250-450 N code = IRON BINDING CAPACITY) % SATURATION (test code = % 24 {% CALC} 16-45 N SATURATION) [facility][QL] PTH, INTACT (WITHOUT CALCIUM)2020-05-29 00:00:00 Test Item Value Reference Range Interpretation Comments PARATHYROID 22 pg/ml 14-64 N Interpretive Gu narinder Intact HORMONE, INTACT PTH (test code = Calcium-------- PARATHYROID HORMONE, INTACT) -------Norm al Parathyroid Normal NormalHypoparat hyroidism Low or Low Norm al LowHyperparathy roidism Primary Normal or High High Secondary High Normal or Low Tertiary High HighNon-Parathy roid Hypercalcemia Low or Low Normal High [facility][QL] FOLATE, [id number] 00:00:00 Test Item Value Reference Range Interpretation Comments FOLATE, SERUM (test 21.3 ng/ml N Referenc e Range code = FOLATE, Low: SERUM) <3.4 Borderline: 3.4-5.4 Normal: >5.4 [facility][QL] VITAMIN [id number] 00:00:00 Test Item Value Reference Range Interpretation Comments VITAMIN B12 (test code = VITAMIN B12) >2000 200-1100 [facility][Q] QUESTASSURED 25-OH VIT D, (D2,D3), LC/MS/MS 2020-05-29 00:00:00 Test Item Value Reference Range Interpretation Comments VITAMIN D, 46 ng/ml 30-100 (Note) Vitamin D, 25-Hydroxy 25-OH, TOTAL reports concent rations of two (test code = common forms, 2 5-OHD2 and VITAMIN D, 25-OHD3. 25-OHD 3 indicates both 25-OH, TOTAL) endogenous pro duction and supplementation . 25-OHD2 is an indicator of ex ogenous sources such as diet o r supplementation . Therapy is based on measu rement of Total 25-OHD, with le vels <20 ng/mL indicative of V itamin D deficiency, whi le levels between 20 ng/m L and 30 ng/mL suggest insuffi ciency. Optimal levels are > or = 30 ng/mL. Vitamin D is fa t-soluble and therefore inadv ertent or intentional ing estion of excessively hig h amounts could be toxic. Studi es in children and adults sugg est blood levels would need to e xceed 150 ng/mL before there i s any concern. Donal DE LA FUENTE, Tyree SPARKS, Evelin KIM, et al. Evaluation, valdemar atment and prevention of v itamin D deficiency: an Endocrine Society clinica l practice guideline. J Cl in Endocrinol Metab. 2011;96( 7):1911-30. For additional info rmation, please refer to http://Wangdaizhijia/faq/FAQ19 9 VITAMIN D, 46 ng/ml Reference range : Not established 25-OH, D3 (test code = VITAMIN D, 25-OH, D3) VITAMIN D, <4 (Note)Reference range: Not 25-OH, D2 established Thi s test was (test code = developed and i ts analytical VITAMIN D, performancechar acteristics have 25-OH, D2) been determined by [facility]. It has not beencle ared or approved by the US Food and Drug Administration. Thisassay has been validated pursuant to the CLIA regulation and is usedfor Clinical purpos es.MDed [id number] [place] [address],[address] [facility] [id number] Nedra Olson Note 1 Note 1 For additional information, please refer to [email or web address] (This link is being provided for informational/e ducational purposes only.) [facility][QL] VITAMIN E (TOCOPHEROL)2020-05-29 00:00:00 Test Item Value Reference Range Interpretation Comments ALPHA-TOCOPHEROL 15.1 mg/L Reference R clint (test code = 5.7-19.9 mg/L ALPHA-TOCOPHEROL) Levels of alpha-tocopherol <5 mg/L are consistent with Vitamin E deficiency in adults.Vitamin supplementation within 24 hours prior to blood draw may affect the accuracy of results. T his test was developed and i ts analytical perf ormance characteristics have been determined by [employer]. It has not been cleared or approved by theFDA. This as say has been validated pursu ant to the CLIA regulation s and is used for clinic al purposes. [id number]-[id number] <1.0 <4.4 This test was developed and DYLLAN (test code = its analyt ical performance REEH-VYIVC-MUFPHM characteri stics have been DYLLAN) determined by [facility]. It has not been cleared or approved by theFDA. This as say has been validated pursu ant to the CLIA regulation s and is used for clinic al purposes. [facility][QL] VITAMIN B1, WHOLE [id number] 00:00:00 Test Item Value Reference Range Interpretation Comments VITAMIN B1, WHOLE 233 nmol/L 78-185 Vitamin lawson pplementation BLOOD (test code = within 24 hours prior VITAMIN B1, WHOLE toblood dr aw may affect BLOOD) the accuracy of results. This test was developed and its analyti magdiel performance characteristics have been determined by [facility]. It has not been cleared or approved by theFDA. This assay has been validated pursuant to the CLIA reg ulations and is used for clinical purposes. [facility][QL] VITAMIN A (RETINOL)2020-05-29 00:00:00 Test Item Value Reference Range Interpretation Comments VITAMIN A (test 42 {mcg/dl} 38-98 Clin Chem Vol. 34.No.8. code = VITAMIN A) [id number] 8. 1997Vitamin supplementation within 24 hours prior to blood draw may affect the accuracy of results. T his test was developed a nd its analytical perf ormance characteristics have been determined by [facility]. It has not been cleared or approved by theFDA. This assay has been validated pursuant to the CLIA reg ulations and is used for clinical purposes. [facility][H] Vit [id number] 12:35:01 Test Item Value Reference Range Interpretation Comments Vitamin A 32.0 ug/dL 22.0-69.5 Reference inter vals for vitamin Level (test A determined fr om code = LabCorpinternal studies. Vitamin A Individuals wit h vitamin A less Level) than 20ug/dL ar e considered vitamin A defic ient and those withserum juan ntrations less than 10 ug/dL a re consideredsever mary deficient.This test was developed and i ts performance characteristics determined by [facility]. It has not been cleared orappro kaiden by the Food and Drug Administration. Performed At: [facility] [id number] [place], [place] [id number] ra Med COELHO Ph:[phone] [facility]] VITAMIN B1, WHOLE [id number] 12:35:01 Test Item Value Reference Range Interpretation Comments Vitamin B1 181.7 66.5-200.0 This test was d eveloped and its Level (test nmol/L performance code = characteristics determined by Vitamin B1 [facility]. It has not been Level) cleared orappro kaiden by the Food and Drug Administration. Performed At: [facility] [id number] [place], [place] [id number] ra Med COELHO Ph:[phone] [facility]] CBC (INCLUDES DIFF/PLT)2019-05-17 12:35:01 Test Item Value Reference Range Interpretation Comments WBC (test code = 6690-2) 8.1 {K/CMM} 3.7-10.4 RBC (test code = 789-8) 4.53 {M/CMM} 4.20-5.40 Hgb (test code = 718-7) 14.2 g/dl 12.0-16.0 Hct (test code = 20722-3) 42.3 % 36.0-48.0 MCV (test code = 787-2) 93.4 fL 80.0-98.0 MCH; Above High Threshold (test 31.3 pg 27.0-31.0 code = 785-6) MCHC (test code = 786-4) 33.6 g/dl 32.0-36.0 RDW (test code = 788-0) 13.8 % 11.5-14.5 Platelet (test code = 42614-1) 258 {K/CMM} 133-450 Mean Platelet Volume; Below Low 7.2 fL 7.4-10.4 Threshold (test code = 07900-8) [facility]] [id number] 12:35:01 Test Item Value Reference Range Interpretation Comments Segmented Neutrophils (test code 56.3 % 45.0-75.0 = 33952-8) Monocytes (test code = 06463-3) 4.8 % 2.0-12.0 Lymphocytes (test code = 92259-1) 37.4 % 20.0-40.0 Eosinophils (test code = 72458-4) 1.2 % 0.0-4.0 Basophils (test code = 706-2) 0.3 % 0.0-1.0 Segs-Bands # (test code = 4.5 {K/CMM} 1.5-8.1 44401-7) Lymphocytes # (test code = 3.0 {K/CMM} 1.0-5.5 44772-3) Monocytes # (test code = 17152-3) 0.4 {K/CMM} 0.0-0.8 Eosinophils # (test code = 0.1 {K/CMM} 0.0-0.5 68047-2) [facility]] VITAMIN D, 25-HYDROXY, LC/MS/[id number] 12:35:01 Test Item Value Reference Range Interpretation Comments Vitamin D, 25-OH, 31.0 ng/ml 30.0-100.0 Reference range is based Total (test code on recommen dations in the = Vitamin D, EndocrineSociet y Clinical 25-OH, Total) Practice Guide line (J Clin Endocrinol Tdndu2768;96:19 11-1930) [facility]] PTH, INTACT (WITHOUT CALCIUM)2019-05-17 12:35:01 Test Item Value Reference Range Interpretation Comments Parathyroid Hormone Intact (test 30.4 pg/ml 18.4-80.1 code = 2731-8) [facility]] CMP [id number] 12:35:01 Test Item Value Reference Range Interpretation Comments Sodium Level 143 {mEq/l} 135-145 (test code = 2951-2) Potassium Level 3.8 {mEq/l} 3.5-5.1 (test code = 2823-3) Chloride Level 107 {mEq/l} 95-109 (test code = 2075-0) Carbon Dioxide; 22 {mEq/l} 24-32 Below Low Threshold (test code = 2027-9) AGAP (test code = 17.8 {mEq/l} 10.0-20.0 78217-0) Glucose Lvl; 109 mg/dl 70-99 Adult reference range Above High values reflect the Threshold (test clinical shanta delinesof the code = 2345-7) [employer]. Creatinine Lvl 0.80 mg/dl 0.50-1.40 (test code = 2160-0) Blood Urea 20 mg/dl 7-22 Nitrogen (test code = 3094-0) BUN/Creatinine 25 6-25 Ratio (test code = 3097-3) Total Protein 7.0 g/dl 6.4-8.4 (test code = 2885-2) Albumin Lvl (test 3.9 g/dl 3.5-5.0 code = 1751-7) Globulin (test 3.1 g/dl 2.7-4.2 code = 76672-6) A/G Ratio (test 1.3 0.7-1.6 code = 1759-0) Calcium Level 9.5 mg/dl 8.5-10.5 Total (test code = 78163-3) ALT (test code = 39 u/l 0-65 1743-4) AST (test code = 23 u/l 0-37 59988-8) Alk Phos (test 82 u/l 39-136 The pediatric reference code = 1783-0) ranges for th is test represent a CLSI-basedtrans ference of the CALIPER savana abase of pediatric refer ence intervals to eSiemens Kermit analyzer (Clinical Biochemistry 46 (2013): 6411-7328). [facility] has not internally validated these reference ranges and therefore they should be used only in th e context of a thoroughcl inical assessment. Bili Total (test 0.7 mg/dl 0.2-1.3 code = 1975-2) eGFR (test code = 79 The eGFR i s calculated 17357-0) {ML/MIN/1.7} using the CKD-E PI formula. In mos t young, healthyindividu als the eGFR will be >9 0 mL/min/1.73m2. The eGFR declines with a ge. AneGFR of 60-89 may be normal in some population s, particularly th e elderly, forwhom the CKD -EPI formula has not been extensively manuel idated. Use of the eGFR isnot recommended in the following populations:Ind ividuals with unstable c reatinine concentrations, including patient s and those with seri ous co-morbid conditions.Martina ents with extremes in mus snow mass or diet.The savana a above are obtained fr om the National Kidney Disease Education Progr am(NKDEP) which chas barker recommends that when the eGFR is used in patientswith ex tremes of body mass index for purposes of giovanna g dosing, the eGFR should be multiplied by t he estimated BMI. [facility]] IRON AND TOTAL IRON BINDING CAPACITY 2019-05-17 12:35:01 Test Item Value Reference Range Interpretation Comments Iron (test code = 2498-4) 102 ug/dL 30-160 % Satur Fe (test code = 2502-3) 27 % 12-57 TIBC (test code = 2500-7) 372 ug/dL 228-428 UIBC (test code = UIBC) 270 ug/dL 110-370 [facility]] LIPID [id number] 12:35:01 Test Item Value Reference Range Interpretation Comments Chol (test code = 2093-3) 186 mg/dl <=199 Trig (test code = 2571-8) 133 mg/dl <=149 HDL Cholesterol; Below Low 50 mg/dl >=61 Threshold (test code = 2085-9) CHD Risk; Below Low Threshold (test 3.72 3.90-5.80 code = 21884-5) LDL; Above High Threshold (test 109 mg/dl <=99 code = 87880-3) VLDL (test code = VLDL) 27 [facility]] VITAMIN [id number] 12:35:01 Test Item Value Reference Range Interpretation Comments Vitamin B12 Level (test code = 713 pg/ml 254-1320 2-9) [facility]] TSH, 3RD GENERATION W/REFLEX TO FT4 2019-05-17 12:35:01 Test Item Value Reference Range Interpretation Comments TSH (test code = 88968-0) 0.497 {uIU/ml} 0.360-3.740 [facility]] FOLATE, [id number] 12:35:01 Test Item Value Reference Range Interpretation Comments Folate Level (test code = 2284-8) 37.8 ng/ml >=3.0 [facility]] HEMOGLOBIN [id number] 12:35:01 Test Item Value Reference Range Interpretation Comments Hemoglobin A1c; Above High Threshold 7.3 % <=5.6 (test code = 4548-4) [facility][H] Vitamin E [id number] 12:35:01 Test Item Value Reference Range Interpretation Comments Alpha-Tocoph 15.5 mg/L 9.0-29.0 This test was d eveloped and its dyllan (test performance code = characteristics determined by [facility]. It has not been cleared dyllan) orapproved by [facility] and Drug Administration. Gamma-Tocoph 1.2 mg/L 0.5-4.9 This test was d eveloped and its dyllan (test performance code = characteristics determined by [facility]. It has not been cleared dyllan) orapproved by [facility] Food and Drug Administration. Reference intervals for a lpha and gamma-tocophero ldetermined from National Health and Nutrition ExaminationSurv ey, 3668-0145. Individuals wit h alpha-tocophero l levelsless than 5.0 mg/L are co nsidered vitamin E deficient.Per formed At: [facility] [id number] [facility][1], [place] [id number] ra Med COELHO Ph:[phone] [facility]
--- NOTE | 2021-04-24 08:48 | RAD REPORT ---
EXAM DESCRIPTION: RAD - Chest Single View - 04/24/2021 8:42 am CLINICAL HISTORY: Chest pain;Abdominal distention COMPARISON: No comparisons FINDINGS: Lines: None. Lungs: No evidence of edema or pneumonia. Pleural: No significant pleural effusions or pneumothorax. Cardiac: The heart size is within normal limits. Bones: No acute fractures. Other: IMPRESSION: No acute cardiopulmonary disease.
[2021-04-24] MEDS ORDERED: MORPHINE 2 MG/ML SYR ONE (09:01)
[2021-04-24] MEDS ORDERED: ONDANSETRON 4 MG/2 ML VIAL ONE (09:01)
[2021-04-24] MEDS ORDERED: PANTOPRAZOLE 40 MG INJ ONE (09:02)
[2021-04-24 09:04] LABS: Absolute Lymphocytes (CBC) 1.5 K/uL (0.7-4.9); Basophils % 0.3 % (0-1.3); Hematocrit 31.8 % (36.0-45.0); Lymphocytes % 24.8 % (15.3-44.8); MPV 7.8 fL (7.6-11.3); RBC Red Blood Cell Count 3.42 M/uL (3.86-4.86)
[2021-04-24 09:12] LABS: Protime INR 1.15
[2021-04-24 09:16] LABS: ALT/SGPT 22 U/L (12-78); AST/SGOT 17 U/L (15-37); Albumin 3.3 g/dL (3.4-5.0); Alkaline Phosphatase 94 U/L (45-117); BUN Blood Urea Nitrogen 28 mg/dL (7-18); Bicarbonate 26 mmol/L (21-32); Bilirubin Direct 0.1 mg/dL (0-0.2); Bilirubin Total 0.4 mg/dL (0.2-1.0); Glucose Level 162 mg/dL (74-106); Lipase 52 U/L (73-393); Magnesium 2.1 mg/dL (1.8-2.4); NT PRO-BNP 74 pg/mL (<125); Potassium 4.3 mmol/L (3.5-5.1); Protein, Total 6.8 g/dL (6.4-8.2); Sodium Level 143 mmol/L (136-145); Troponin (Emerg Dept Use Only) < 0.02 ng/mL (0.0-0.045)
--- NOTE | 2021-04-24 10:45 | RAD REPORT ---
EXAM DESCRIPTION: CTChest Abdomen Pelvis W Cont - 04/24/2021 10:24 am CLINICAL HISTORY: Abdominal distention;Chest pain COMPARISON: No comparisonsNo comparisons TECHNIQUE: CT of the chest, abdomen, and pelvis was performed. All CT scans are performed using dose optimization technique as appropriate and may include automated exposure control or mA/KV adjustment according to patient size. FINDINGS: Thorax: Chest Wall: Enlarged multinodular thyroid. Lungs: No acute abnormality. Pleura: No effusions or pneumothorax. Ita/Mediastinum: No lymphadenopathy. Thoracic Aorta: No aneurysm. Aorta/Pulmonary Arteries: Unremarkable Heart: Normal size. Abdomen/Pelvis: Liver: No acute abnormality or suspicious lesions. Biliary: Cholecystectomy. Stomach: Status post Josue-en-Y gastric bypass. Duodenum: No significant focal abnormality. Pancreas: No significant abnormality. Spleen: No significant abnormality. Adrenal: No suspicious lesions. Kidney/ureter: No hydronephrosis. No renal calculi. Retroperitoneum: No retroperitoneal adenopathy. Vascular: Atherosclerosis Bowel: Moderate stool in the colon.. Peritoneum: Moderate volume of free air. There is also some free fluid. The exact site of perforation is unclear. Bladder: Grossly unremarkable. Reproductive: No adnexal masses. Bones: No acute fracture. Fusion hardware in the spine. Multilevel degenerative disc disease. Other: n/a IMPRESSION: Moderate volume of free air in the abdomen consistent with perforation of a hollow viscu s. Though the exact site of perforation is unclear, based on the gas distribution, near the gastrojej unostomy would be the favored source. Recommend surgical consultation.
--- NOTE | 2021-04-24 11:18 | ER ---
Nurse's Notes [facility] Name: Pratima Escobedo Age: 65 yrs Sex: Female : 1955 Arrival Date: 04/24/2021 Time: 07:46 Bed 7 Private MD: Diagnosis: Upper abdominal pain, unspecified-hx of gastric bypass;Epigastric abdominal tenderness-perforated viscus, gastric ulcer Presentation: 04/24 07:46 Chief complaint: EMS states: epigastric pain and indigestion started about an hour ago. sv Denies n/v/d/constipation/trauma. EKG-SR SBP 90s, 20G R AC NS 500 mls, Toradol 30 mg IVP given. Coronavirus screen: Vaccine status: Patient reports receiving the 2nd dose of the covid vaccine. Patient reports receiving the 1st dose of the Covid vaccine. Client denies travel out of the [place] in the last 14 days. Ebola Screen: No symptoms or risks identified at this time. Initial Sepsis Screen: Does the patient meet any 2 criteria? No. Patient's initial sepsis screen is negative. Does the patient have a suspected source of infection? No. Patient's initial sepsis screen is negative. Risk Assessment: Do you want to hurt yourself or someone else? Patient reports no desire to harm self or others. Onset of symptoms was April 24, 2021. 07:46 Method Of Arrival: EMS: [facility] sv 07:46 Acuity: DIMAS 3 sv 11:59 Coronavirus screen: Client reports previous positive COVID test result. Date of sv collection: March 19, 2021. Triage Assessment: 07:50 General: Appears in no apparent distress. uncomfortable, well developed, Behavior is sv cooperative, appropriate for age, anxious. Pain: Complains of pain in epigastric area Pain currently is 10 out of 10 on a pain scale. Quality of pain is described as crampy, Pain began 1 hour ago. Is continuous. Neuro: Level of Consciousness is awake, alert, obeys commands, Oriented to person, place, time, situation, Moves all extremities. Full function. Respiratory: Airway is patent Respiratory effort is even, unlabored, Respiratory pattern is regular, symmetrical. GI: Reports epigastric pain, indigestion, Patient currently denies diarrhea, nausea, vomiting. Derm: Skin is pink, warm \T\ dry. Historical: - Allergies: 07:49 Hydrocodone; sv - PMHx: 07:49 HTN; Anxiety; Periumbilical hernia; sv - PSHx: 07:49 Gastric bypass; sv - Immunization history:: Adult Immunizations up to date. - Social history:: Smoking status: Patient denies any tobacco usage or history of. - Family history:: not pertinent. Screenin:53 Abuse screen: Denies threats or abuse. Denies injuries from another. Nutritional sv screening: No deficits noted. Tuberculosis screening: No symptoms or risk factors identified. Fall Risk None identified. Assessment: 09:09 Reassessment: Patient appears in no apparent distress at this time. No changes from sv previously documented assessment. Patient and/or family updated on plan of care and expected duration. Pain level reassessed. Patient is alert, oriented x 3, equal unlabored respirations, skin warm/dry/pink. 10:40 Reassessment: Patient appears in no apparent distress at this time. No changes from sv previously documented assessment. Patient and/or family updated on plan of care and expected duration. Pain level reassessed. Patient is alert, oriented x 3, equal unlabored respirations, skin warm/dry/pink. 11:38 Reassessment: Patient appears in no apparent distress at this time. Patient and/or sv family updated on plan of care and expected duration. Pain level reassessed. Patient is alert, oriented x 3, equal unlabored respirations, skin warm/dry/pink. 13:25 Reassessment: Patient appears in no apparent distress at this time. Patient and/or sv family updated on plan of care and expected duration. Pain level reassessed. Patient is alert, oriented x 3, equal unlabored respirations, skin warm/dry/pink. 14:30 Reassessment: Patient appears in no apparent distress at this time. Patient and/or hb family updated on plan of care and expected duration. Pain level reassessed. Patient is alert, oriented x 3, equal unlabored respirations, skin warm/dry/pink. 15:00 Reassessment: Report given by Verna WAYNE to Cynthia WAYNE. Vital Signs: 07:46 BP 128 / 53; Pulse 59; Resp 20; Temp 97; Pulse Ox 100% ; Weight 71.21 kg; Height 5 ft. sv 0 in. (152.40 cm); Pain 10/10; 10:09 BP 93 / 53; Pulse 70; Resp 20; Pulse Ox 100% on R/A; sv 10:40 BP 128 / 54; Pulse 79; Resp 18; Pulse Ox 100% ; sv 11:15 BP 100 / 53; Pulse 64; Resp 16; Pulse Ox 98% ; sv 12:00 BP 99 / 50; Pulse 62; Resp 16; Pulse Ox 99% ; sv 12:45 BP 101 / 47; Pulse 76; Resp 18; Pulse Ox 96% ; sv 13:30 BP 93 / 47; Pulse 87; Resp 18; Pulse Ox 96% ; sv 07:46 Body Mass Index 30.66 (71.21 kg, 152.40 cm) sv ED Course: 07:46 Patient arrived in ED. sv 07:46 Maintain EMS IV. Dressing intact. Good blood return noted. Site clean \T\ dry. Gauge \T\ sv site: 20G R AC. 07:48 Triage completed. sv 07:50 Arm band placed on. sv 07:53 Patient has correct armband on for positive identification. Bed in low position. Call sv light in reach. Side rails up X2. Pulse ox on. NIBP on. Door closed. Head of bed elevated. 08:05 León Gifford MD is Attending Physician. renetta 08:24 Anaya Lee RN is Primary Nurse. sv 08:24 ED physician to see patient. sv 08:42 XRAY Chest (1 view) In Process Unspecified. EDMS 09:09 Awaiting lab results, Awaiting CT Scan. sv 10:24 Chest Abdomen Pelvis W Con CT: with oral In Process Unspecified. EDMS 15:41 No provider procedures requiring assistance completed. Patient transferred, IV remains sv in place. intact. Administered Medications: 08:55 Drug: ProTONIX (pantoprazole) 40 mg Route: IVP; Site: right antecubital; sv 09:21 Follow up: Response: No adverse reaction sv 08:55 Drug: morphine 2 mg {Note: rass1.} Route: IVP; Site: right antecubital; sv 09:30 Follow up: Response: No adverse reaction; RASS: Alert and Calm (0) sv 08:55 Drug: Zofran (Ondansetron) 4 mg Route: IVP; Site: right antecubital; sv 09:21 Follow up: Response: No adverse reaction sv 11:38 Drug: Zosyn (piperacillin-tazobactam) 3.375 grams Route: IVPB; Infused Over: 60 mins; sv Site: right antecubital; 12:10 Follow up: Response: No adverse reaction; IV Status: Completed infusion; IV Intake: sv 100ml 13:25 Drug: Dilaudid (HYDROmorphone) 0.5 mg Route: IVP; Site: right antecubital; hb 14:00 Follow up: Response: No adverse reaction sv Intake: 12:10 IV: 100ml; Total: 100ml. sv Outcome: 11:18 ER care complete, transfer ordered by MD. jackson 15:40 Transferred by ground EMS to [facility], Transfer form completed. X-rays sent sv w/ patient. Note: Report given by Verna WAYNE to [facility] 15:40 Condition: stable 15:40 Instructed on the need for transfer. 15:41 Patient left the ED. sv Signatures: Dispatcher [employer] Anaya Acosta RN RN sv Anderson, Corey, MD MD cha Baxter, Heather, RN RN
--- NOTE | 2021-04-24 11:18 | EDPHYS ---
Physician Documentation [facility] Name: Pratima Escobedo Age: 65 yrs Sex: Female : 1955 Arrival Date: 04/24/2021 Time: 07:46 Bed 7 Private MD: ED Physician León Gifford HPI: 04/24 08:31 This 65 yrs old Female presents to ER via EMS with complaints of Epigastric renetta Pain. 08:31 The patient presents with abdominal pain abdominal distention in the epigastric area. renetta Onset: The symptoms/episode began/occurred 4 day(s) ago. The symptoms do not radiate. Associated signs and symptoms: none. The symptoms are described as crampy, dull. Modifying factors: The symptoms are alleviated by nothing, the symptoms are aggravated by food. Severity of pain: At its worst the pain was mild in the emergency department the pain is unchanged. The patient has not experienced similar symptoms in the past. Historical: - Allergies: 07:49 Hydrocodone; sv - PMHx: 07:49 HTN; Anxiety; Periumbilical hernia; sv - PSHx: 07:49 Gastric bypass; sv - Immunization history:: Adult Immunizations up to date. - Social history:: Smoking status: Patient denies any tobacco usage or history of. - Family history:: not pertinent. ROS: 08:31 Constitutional: Negative for fever, chills, and weight loss, Eyes: Negative for injury, renetta pain, redness, and discharge, ENT: Negative for injury, pain, and discharge, Neck: Negative for injury, pain, and swelling, Cardiovascular: Negative for chest pain, palpitations, and edema, Respiratory: Negative for shortness of breath, cough, wheezing, and pleuritic chest pain, Back: Negative for injury and pain, : Negative for injury, bleeding, discharge, and swelling, MS/Extremity: Negative for injury and deformity, Skin: Negative for injury, rash, and discoloration, Neuro: Negative for headache, weakness, numbness, tingling, and seizure, Psych: Negative for depression, anxiety, suicide ideation, homicidal ideation, and hallucinations, Allergy/Immunology: Negative for hives, rash, and allergies, Endocrine: Negative for neck swelling, polydipsia, polyuria, polyphagia, and marked weight changes, Hematologic/Lymphatic: Negative for swollen nodes, abnormal bleeding, and unusual bruising. 08:31 Abdomen/GI: Positive for abdominal pain, of the epigastric area. Exam: 08:31 Constitutional: This is a well developed, well nourished patient who is awake, alert, renetta and in no acute distress. Head/Face: Normocephalic, atraumatic. Eyes: Pupils equal round and reactive to light, extra-ocular motions intact. Lids and lashes normal. Conjunctiva and sclera are non-icteric and not injected. Cornea within normal limits. Periorbital areas with no swelling, redness, or edema. ENT: Nares patent. No nasal discharge, no septal abnormalities noted. Tympanic membranes are normal and external auditory canals are clear. Oropharynx with no redness, swelling, or masses, exudates, or evidence of obstruction, uvula midline. Mucous membranes moist. Neck: Trachea midline, no thyromegaly or masses palpated, and no cervical lymphadenopathy. Supple, full range of motion without nuchal rigidity, or vertebral point tenderness. No Meningismus. Chest/axilla: Normal chest wall appearance and motion. Nontender with no deformity. No lesions are appreciated. Cardiovascular: Regular rate and rhythm with a normal S1 and S2. No gallops, murmurs, or rubs. Normal PMI, no JVD. No pulse deficits. Respiratory: Lungs have equal breath sounds bilaterally, clear to auscultation and percussion. No rales, rhonchi or wheezes noted. No increased work of breathing, no retractions or nasal flaring. Back: No spinal tenderness. No costovertebral tenderness. Full range of motion. Female : Normal external genitalia. Skin: Warm, dry with normal turgor. Normal color with no rashes, no lesions, and no evidence of cellulitis. MS/ Extremity: Pulses equal, no cyanosis. Neurovascular intact. Full, normal range of motion. Neuro: Awake and alert, GCS 15, oriented to person, place, time, and situation. Cranial nerves II-XII grossly intact. Motor strength 5/5 in all extremities. Sensory grossly intact. Cerebellar exam normal. Normal gait. Psych: Awake, alert, with orientation to person, place and time. Behavior, mood, and affect are within normal limits. 08:31 Abdomen/GI: Inspection: abdomen appears normal, Bowel sounds: normal, Palpation: moderate abdominal tenderness, in the epigastric area, Liver: no appreciated palpable abnormalities, Hernia: noted in the epigastric area. 08:53 ECG was reviewed by the Attending Physician. renetta Vital Signs: 07:46 BP 128 / 53; Pulse 59; Resp 20; Temp 97; Pulse Ox 100% ; Weight 71.21 kg; Height 5 ft. sv 0 in. (152.40 cm); Pain 10/10; 10:09 BP 93 / 53; Pulse 70; Resp 20; Pulse Ox 100% on R/A; sv 10:40 BP 128 / 54; Pulse 79; Resp 18; Pulse Ox 100% ; sv 11:15 BP 100 / 53; Pulse 64; Resp 16; Pulse Ox 98% ; sv 12:00 BP 99 / 50; Pulse 62; Resp 16; Pulse Ox 99% ; sv 12:45 BP 101 / 47; Pulse 76; Resp 18; Pulse Ox 96% ; sv 13:30 BP 93 / 47; Pulse 87; Resp 18; Pulse Ox 96% ; sv 07:46 Body Mass Index 30.66 (71.21 kg, 152.40 cm) sv MDM: 08:05 Patient medically screened. renetta 08:38 Differential diagnosis: bowel obstruction, gastroesophageal reflux disease, renetta non-specific abd pain, Peptic Ulcer Disease, urinary tract infection. Data reviewed: nurses notes, lab test result(s), EKG, radiologic studies, CT scan, plain films. Data interpreted: residential monitor: rate is 59 beats/min, rhythm is regular, Pulse oximetry: on room air is 100 %. Counseling: I had a detailed discussion with the patient and/or guardian regarding: the historical points, exam findings, and any diagnostic results supporting the discharge/admit diagnosis, lab results, radiology results. 04/24 08:31 Order name: Basic Metabolic Panel; Complete Time: 09:20 [facility] 04/24 08:31 Order name: CBC with Diff; Complete Time: 09:20 [facility] 04/24 08:31 Order name: LFT's; Complete Time: 09:20 [facility] 04/24 08:31 Order name: Magnesium; Complete Time: 09:20 [facility] 04/24 08:31 Order name: NT PRO-BNP; Complete Time: 09:20 [facility] 04/24 08:31 Order name: PT-INR; Complete Time: 09:20 [facility] 04/24 08:31 Order name: Troponin (emerg Dept Use Only); Complete Time: 09:20 renetta 04/24 08:31 Order name: XRAY Chest (1 view); Complete Time: 09:20 renetta 04/24 08:31 Order name: Lipase; Complete Time: 09:20 [facility] 04/24 08:31 Order name: Chest Abdomen Pelvis W Con CT: with oral; Complete Time: 11:55 renetta 04/24 08:31 Order name: Urine Culture [facility] 04/24 10:26 Order name: SARS-COV-2 RT PCR; Complete Time: 10:26 EDMS 04/24 08:31 Order name: EKG; Complete Time: 08:32 renetta 04/24 08:31 Order name: Cardiac monitoring; Complete Time: 08:56 [facility] 04/24 08:31 Order name: EKG - Nurse/Tech; Complete Time: 08:56 [facility] 04/24 08:31 Order name: IV Saline Lock; Complete Time: 08:56 [facility] 04/24 08:31 Order name: Labs collected and sent; Complete Time: 08:55 [facility] 04/24 08:31 Order name: O2 Per Protocol; Complete Time: 08:55 [facility] 04/24 08:31 Order name: O2 Sat Monitoring; Complete Time: 08:55 renetta EC:53 Rate is 64 beats/min. Rhythm is regular. QRS [place] is Normal. UT interval is normal. QRS renetta interval is normal. QT interval is normal. No Q waves. T waves are Normal. No ST changes noted. Clinical impression: NSR w/ Non-specific ST/T Changes and No evidence of ischemia. Interpreted by me. Reviewed by me. Administered Medications: 08:55 Drug: ProTONIX (pantoprazole) 40 mg Route: IVP; Site: right antecubital; sv 09:21 Follow up: Response: No adverse reaction sv 08:55 Drug: morphine 2 mg {Note: rass1.} Route: IVP; Site: right antecubital; sv 09:30 Follow up: Response: No adverse reaction; RASS: Alert and Calm (0) sv 08:55 Drug: Zofran (Ondansetron) 4 mg Route: IVP; Site: right antecubital; sv 09:21 Follow up: Response: No adverse reaction sv 11:38 Drug: Zosyn (piperacillin-tazobactam) 3.375 grams Route: IVPB; Infused Over: 60 mins; sv Site: right antecubital; 12:10 Follow up: Response: No adverse reaction; IV Status: Completed infusion; IV Intake: sv 100ml 13:25 Drug: Dilaudid (HYDROmorphone) 0.5 mg Route: IVP; Site: right antecubital; hb 14:00 Follow up: Response: No adverse reaction sv Disposition Summary: 04/24/21 11:18 Transfer Ordered Transfer Location: [facility] Reason: Higher level of care renetta Condition: Stable renetta Problem: new renetta Symptoms: have improved renetta Accepting Physician: [facility](04/24/21 15:41) sv Diagnosis - Upper abdominal pain, unspecified - hx of gastric bypass renetta - Epigastric abdominal tenderness - perforated viscus, gastric ulcer renetta Forms: - Medication Reconciliation Form renetta - SBAR form renetta Signatures: Dispatcher [employer] EDAnaya Jean-Baptiste RN RN sv Anderson, Corey, MD MD cha Baxter, Heather, RN RN Corrections: (The following items were deleted from the chart) 09:10 08:33 CORONAVIRUS+MRAlannahLAB.BRZ ordered. EDMS EDMS 15:41 11:18 [facility] renetta sv
[2021-04-24] MEDS ORDERED: PIPER/TAZO/NS 3.375gm 3.375 GM/100 ML BAG ONE (11:56)
[2021-04-24] MEDS ORDERED: HYDROMORPHONE HCL 0.5 MG/0.5 ML INJ ONE (13:45)
[2021-04-24 15:47] VITALS: TEMP 97
[2021-04-24 15:53] VITALS: O2SAT 96
[2021-04-24 15:54] VITALS: BP 93/47
== END 2021-04-24 15:41 | disposition short-term general hospital (02) ==
LOC: ER 07:43
DX: U07.1 COVID-19 (principal); K25.5 Chronic or unspecified gastric ulcer with perforation; I10 Essential (primary) hypertension; Z88.5 Allergy status to narcotic agent; Z98.84 Bariatric surgery status
CPT/HCPCS: 96365; 93005; 87088; 85025; 87086; 80048; 36415; 83735; 85610; 80076; 84484; 83690; 83880; 71260; 74177; 71045; 96375; 99285; U0003; Q9967; C9113; J2543; J2270; J1170; J2405